=== PATIENT | male | born 1945 | race Caucasian/White ===

== ENCOUNTER 2017-10-03 17:17 | Inpatient (IN) | payer OTHER ==
[~2017-10-03] VITALS: Ht 165.1 cm; Wt 64.0 kg
--- NOTE | ~2017-10-03 | S ---
[facility] [place] [address] SURGICAL PATH RPT PROCEDURE Name: NAVI THEODORE Room #: 360-P ADM IN M.R.#: [id number] Admission: 10/03/17 Date of : 47 Discharge: Report #: [id number] Path Case #: [id number] PATHOLOGY REPORT COLLECTION DATE: 10/06/2017 RECEIVED DATE: 10/06/2017 SUBMITTING PHYS: Dr. Max Valdovinos OTHER PHYS: Dr. Gera Barton SPECIMEN(S) RECEIVED: A.RLL forceps * * * * * * * * * * * * FINAL DIAGNOSIS: "RLL forceps", bronchial biopsy: - Benign and reactive bronchial epithelium and underlying bronchial wall with patchy acute and chronic inflammation, ulceration and granulation tissue. - Vegetative material present. COMMENT: Please see also the cytology specimen ([id number]). Clinical and bronchoscopic correlation is recommended. The case is co-reviewed with Dr. Rosanne Salazar. (CLW:pit; 10/07/2017) PATHOLOGIST: Jeimy Leonard M.D. REPORT ELECTRONICALLY SIGNED BY: Jeimy Leonard M.D. DATE/TIME: 10/07/2017 16:54 * * * * * * * * * * * * GROSS PATHOLOGY: The specimen is received in formalin, labeled "Renée Weller Theodore and biopsy forcep RLL", are multiple henry-porter needle cores and fragments the aggregate measuring 1.0 x 0.6 x 0.1 cm, entirely submitted in A1. (SWS; 10/06/2017) CLINICAL HISTORY: None provided INITIAL CPT CODE(S): A; 40540 Professional services performed by [facility] at [facility] [address] , [place] [address] [facility] [address] [place] [address] SURGICAL PATH RPT PROCEDURE Name: NAVI THEODORE Room #: 360-P ADM IN M.R.#: [id number] Admission: 10/03/17 Date of : 47 Discharge: Report #: [id number] Path Case #: [id number] [facility] [address] [place] [address], [facility] [address] [place] [address]. [facility] [address] [place] [address] PHONE: [phone] DIRECTOR: Ron Rebolledo M.D. * * * END OF REPORT * * *
--- NOTE | ~2017-10-03 | CNG ---
[facility] [place] [address] CYTO-NONGYN REPORT PROCEDURE Name: NAVI THEODORE Room #: 360-P [facility] IN M.R.#: [id number] Admission: 10/03/17 Date of : 47 Discharge: 10/09/17 Report #: [id number] Path Case #: [id number] CYTOPATHOLOGY REPORT COLLECTION DATE: 10/09/2017 RECEIVED DATE: 10/09/2017 SUBMITTING PHYS: Dr. Max Valdovinos OTHER PHYS: Dr. Gera Wallace CLINICAL HISTORY: Resp. failure, PNA, COPD SPECIMEN(S) RECEIVED: A.Bronchoalveolar lavage, RLL * * * * * * * * * * * * FINAL DIAGNOSIS: A. Lung, RLL, Bronchoalveolar lavage: - No malignant cells identified. - Bronchial epithelial cells, alveolar macrophages, squamous cells and inflammation present. PATHOLOGIST: Rosanne Salazar M.D. REPORT ELECTRONICALLY SIGNED BY: Rosanne Salazar M.D. DATE/TIME: 10/12/2017 16:06 * * * * * * * * * * * * GROSS PATHOLOGY: A. Bronchoalveolar lavage, RLL: The specimen is submitted unfixed, labeled "Navi Theodore". Received by the Cytology Department is 14 mL of cloudy colorless fluid. One ThinPrep slide was prepared. (mm 10.09.2017) TREATING AND PUMPING SUPERVISOR(S): Mattie K. Shipe, CT(ASCP) INITIAL CPT CODE(S): A; 99813 Professional services performed by [facility] at [facility] [address], [place] [address] Technical services performed by [facility] at [address] [place] [address]., [address], [place] [address]. [facility] [address] [place] [address], [address] [place] [address] [facility] [address] [place] [address] CYTO-NONGYN REPORT PROCEDURE Name: NAVI THEODORE Room #: 360-P [facility] IN .R.#: [id number] Admission: 10/03/17 Date of : 47 Discharge: 10/09/17 Report #: [id number] Path Case #: [id number] PHONE: [phone] DIRECTOR: Ron Rebolledo M.D. * * * END OF REPORT * * *
--- NOTE | ~2017-10-03 | CNG ---
[facility] [place] [address] CYTO-NONGYN REPORT PROCEDURE Name: NAVI ISSA Room #: 360-P ADM IN M.R.#: [id number] Admission: 10/03/17 Date of : 47 Discharge: Report #: [id number] Path Case #: [id number] CYTOPATHOLOGY REPORT COLLECTION DATE: 10/06/2017 RECEIVED DATE: 10/07/2017 SUBMITTING PHYS: OTHER PHYS: CLINICAL HISTORY: Resp failure, PNA, COPD exacerbation: See also [id number]. SPECIMEN(S) RECEIVED: A.Bronchial wash B.Brushing, RLL * * * * * * * * * * * * FINAL DIAGNOSIS: A. Bronchial wash: - No malignant cells identified. Reactive bronchial epithelial cells and acute and chronic inflammatory cells present. B. Brushing, RLL: - No malignant cells identified. Normal and reactive bronchial epithelial cells, macrophages and acute and chronic inflammatory cells present in a background of blood, mucus and vegetative material. COMMENT: Please see also the bronchial wall biopsy ([id number]) showing benign bronchial epithelium with acute and chronic inflammation, ulceration and vegetative material. Clinical and bronchoscopic correlation is required. (CLW; 10/08/17) PATHOLOGIST: Jeimy Leonard M.D. REPORT ELECTRONICALLY SIGNED BY: Jeimy Leonard M.D. DATE/TIME: 10/08/2017 20:59 * * * * * * * * * * * * GROSS PATHOLOGY: A. Bronchial wash: The specimen is submitted unfixed, labeled "Issa, Navi Nithin". Received by the Cytology Department is 13 mL of cloudy red fluid. One ThinPrep slide was prepared. RAJIV Justice: The specimen is labeled "Navi Issa" and consists of a brush tip in fixative and four fixed slides. One ThinPrep slide was prepared. (lg 10.07.2017) REGIONAL RETAIL SALES MANAGER(S): RAS Pina(ASCP)[address] [address] CYTO-NONGYN REPORT PROCEDURE Name: NVAI ISSA Room #: 360-P [facility] IN M.R.#: [id number] Admission: 10/03/17 Date of : 47 Discharge: Report #: [id number] Path Case #: [id number] INITIAL CPT CODE(S): A; 29497 B; 22165 Professional services performed by [facility] at [address], [place] [address] [facility] at [address] [place] [address], [address], [place] [address]. [address], [facility] [address] [place] [address] PHONE: [phone] DIRECTOR: Ron Rebolledo M.D. * * * END OF REPORT * * *
--- NOTE | ~2017-10-03 | CNG ---
[facility] [place] [address] CYTO-NONGYN REPORT PROCEDURE Name: ISSANAVI Diana Room #: 360-P ADM IN M.R.#: [id number] Admission: 10/03/17 Date of : 47 Discharge: Report #: [id number] Path Case #: [id number] CYTOPATHOLOGY REPORT COLLECTION DATE: 10/04/2017 RECEIVED DATE: 10/05/2017 SUBMITTING PHYS: Dr. Gera Barton OTHER PHYS: Dr. Max Wallace CLINICAL HISTORY: Respiratory failure, PNA, COPD EXAC SPECIMEN(S) RECEIVED: A.Pleural fluid * * * * * * * * * * * * FINAL DIAGNOSIS: A. Pleural fluid: - No malignant epithelial cells identified. - Highly reactive mesothelial cells identified in a background of marked acute inflammation. PATHOLOGIST: Jeimy Leonard M.D. REPORT ELECTRONICALLY SIGNED BY: Jeimy Leonard M.D. DATE/TIME: 10/06/2017 11:47 * * * * * * * * * * * * GROSS PATHOLOGY: A. Pleural fluid: The specimen is submitted unfixed, labeled "Navi Issa". Received by the Cytology Department is 20 mL of cloudy yellow fluid. One ThinPrep slide and a formalin fixed cell block were prepared. (10.05.2017) HISTOTECHNOLOGIST(S): RAS Marroquin([facility]) INITIAL CPT CODE(S): A; 23637, 59682 Professional services performed by [facility] at [facility] [address], [place] [address] Technical services performed by [facility] at [address] [place] [address]., [address], [place] [address]. [facility] [address] [place] [address], [address] [facility] [address] [place] [address] CYTO-NONGYN REPORT PROCEDURE Name: NAVI ISSA Room #: 360-P ADM IN M.R.#: [id number] Admission: 10/03/17 Date of : 47 Discharge: Report #: [id number] Path Case #: [id number] [place] [address] PHONE: [phone] DIRECTOR: Ron Rebolledo M.D. * * * END OF REPORT * * *
--- NOTE | ~2017-10-03 | HC ---
[facility] [place] [address] CONSULTATION Name: NAVI THEODORE Room #: 360-P ADM IN M.R.#: [id number] Admission: 10/03/17 Attend Phys: Max Valdovinos MD Discharge: Date of : 47 Report #: [id number] THIS REPORT FOR: //name// CC: Max Wallace DO DATE OF SERVICE: 10/04/2017 REFERRING PROVIDER: Dr. Valdovinos. REASON FOR CONSULTATION: Shortness of breath, pleural effusion. HISTORY OF PRESENT ILLNESS: Our group was asked to see the patient in consultation while hospitalized at [facility]. A pleasant 72-year-old male with a past pulmonary history of tobacco use, quitting roughly a few years ago. He had some increasing shortness of breath over the last several days, presented to [facility], was found to have what appeared to be an infiltrate and effusion, was told he had mucus plugging. Did not respond to antibiotic therapy and airway clearance measures while at [facility], subsequently discharged; however, re-presented to our hospital yesterday for similar complaints, was found to have a right pleural effusion. CT scan of the chest was performed due to chest pain and dyspnea on that side and found to have a significant pleural effusion, has undergone a thoracentesis this afternoon. Some fever and chills. Cough has been nonproductive. No hemoptysis. ALLERGIES: PENICILLIN. PAST MEDICAL HISTORY: 1. COPD. 2. Hypertension. 3. Hyperlipidemia. 4. Tonsillectomy. SOCIAL HISTORY: Ex-smoker with a 50-pack year history of tobacco use. No alcohol consumption. FAMILY HISTORY: Significant for some pulmonary disease in his father. He could not elaborate on. OUTPATIENT MEDICATIONS: Recently included doxycycline, albuterol, atorvastatin, Norvasc, and budesonide. REVIEW OF SYSTEMS: CONSTITUTIONAL: Some fever up to 100.5. No chills. [facility] [address] [place] [address] CONSULTATION Name: NAVI THEODORE Room #: [facility] IN ..#: [id number] Admission: 10/03/17 Attend Phys: Max Valdovinos MD Discharge: Date of : 47 Report #: [id number] ENT: No upper respiratory congestion or rhinorrhea. CARDIOVASCULAR: Chest pain in the right lower chest. No palpitations. GASTROINTESTINAL: No nausea, vomiting, diarrhea, constipation or abdominal pain. GENITOURINARY: No dysuria, no frequency or hematuria. INTEGUMENT: Denies any rash. MUSCULOSKELETAL: No joint pains or swelling and no lower extremity edema. PHYSICAL EXAMINATION: VITAL SIGNS: Afebrile, pulse 80s, respiratory rate 18, blood pressure 121/72. GENERAL: This is a pleasant elderly male, does not appear in any distress. HEENT: Clear oropharynx. No thrush. NECK: Supple, no lymphadenopathy. LUNGS: Diminished on the right with some pleural friction rub appreciated. CARDIOVASCULAR: Heart regular. No murmurs noted. ABDOMEN: Soft, nontender, no masses. EXTREMITIES: Without significant edema. IMAGING AND LABORATORY DATA: CT scan as described in HPI. Significant emphysema noted as well as possible right lower lobe endobronchial obstruction with significant pleural effusion. White blood cell count 11,000; hemoglobin 12; hematocrit 35, platelet count 674. Sodium 138, potassium 3.8, chloride 103, bicarbonate 24, BUN 14, creatinine 0.6, glucose 149. Cultures are pending. IMPRESSION: 1. Pulmonary infiltrate and right pleural effusion of unclear etiology. Await pleural fluid results. Consider fiberoptic bronchoscopy if significant atelectasis persists. 2. Chest pain secondary to #1 above. 3. History of tobacco use. 4. Underlying chronic obstructive pulmonary disease and emphysema. The patient states he is typically well controlled on Symbicort and Spiriva daily with rare need for p.r.n. albuterol. SUGGESTIONS: As outlined above. <ELECTRONICALLY SIGNED> By: Gera Barton MD 10/07/17 1818 01 0227 Gera Barton MD /nt
--- NOTE | ~2017-10-03 | P ---
[facility] [place] [address] PROCEDURE REPORT Name: NAVI THEODORE Room #: 360-P [facility] IN M.R.#: [id number] Admission: 10/03/17 Attend Phys: Max Valdovinos MD Discharge: 10/09/17 Date of : 47 Report #: [id number] THIS REPORT FOR: //name// CC: Max Wallace DATE OF SERVICE: 10/09/2017 PROCEDURE: Fiberoptic bronchoscopy with bronchioalveolar lavage of the right lower lobe. INDICATION: Foreign body in the right lower lobe with recent bronchoscopy showing a vegetative material and ongoing mucous plugs and atelectasis, ASA classification class 3. PROCEDURE NOTATION: After discussing risks, benefits of planned procedure with the patient, he desired to proceed. After obtaining informed consent, he was brought to label pinker 3 where he was placed on continuous cardiopulmonary monitoring and supplemental oxygen, then given 4% lidocaine nebulized to anesthetize the upper respiratory tract. Once accomplished, he received conscious sedation. A total of 6 mg of Versed and 25 mcg of fentanyl were titrated during the procedure to provide adequate sedation. Once accomplished, bronchoscope was passed through an oral bite block until the vocal cords were visualized. Lidocaine 1% was instilled in the vocal cords for topical anesthesia. Bronchoscope was then passed in the trachea, where 1% lidocaine was instilled in the tracheobronchial tree bilaterally for topical anesthesia. Once complete, airways were surveyed. FINDINGS: The left-sided airways were not evaluated as they were evaluated 3 days prior. Please see prior bronchoscopy dictation for notations. Right-sided findings did show some ongoing edema to the right lower lobe airways. There were some thick mucus plugging that was purged and aspirated with several 20 mL aliquots of saline. Several mucus plugs were captured in the bronchoscopy trap. There was no significant other foreign material noted. All areas were patent at the end of the lavage. The upper airway did show candidiasis around the epiglottis and other soft tissue structures in this area. IMPRESSION: 1. Pneumonia with atelectasis, nothing for foreign material. 2. Thrush and oropharyngeal candidiasis. SUGGESTIONS: 1. Nystatin swish and swallow four times daily. 2. Continue with current airway clearance measures and antibiotics. 3. Okay to discharge is stable on supplemental oxygen, aerosol treatments, [facility] [address] [place] [address] PROCEDURE REPORT Name: NAVI THEODORE Room #: 360-[facility] IN M.R.#: [id number] Admission: 10/03/17 Attend Phys: Max Valdovinos MD Discharge: 10/09/17 Date of : 47 Report #: [id number] clindamycin for an additional two weeks and follow with us in 1 week with chest radiograph in our office. <ELECTRONICALLY SIGNED> By: Gera Barton MD 10/26/17 1535 1001 2332 Gera Barton MD /sarah
--- NOTE | ~2017-10-03 | H ---
[facility] [place] [address] HISTORY AND PHYSICAL Name: NAVI THEODORE Room #: 360-P ADM IN M.R.#: [id number] Admission: 10/03/17 Attend Phys: Max Valdovinos MD Discharge: Date of : 47 Report #: [id number] THIS REPORT FOR: //name// CC: Duncan Rios DATE OF SERVICE: 10/03/2017 REASON FOR THE PRESENTATION: Shortness of breath of few days' duration. HISTORY OF PRESENT ILLNESS: A 72-year-old with advanced COPD. This seems to be all environmental related as he is exposed to so many environmental agents with his job. However, he does not follow with the solar sales representative. He is maintained on multiple inhalers. He visited with [facility] few days ago and was admitted for his shortness of breath and was told that he had some sort of pneumonia. He was discharged on doxycycline. He tested negative for flu. During his hospital stay of 3 days in [facility], he was told that he had a mucus plug on his right lung; however, they are not able to do anything at that facility. The patient was discharged home on oxygen 4 liters nasal cannula at rest and 6 liters while exertion. He continued to have significant shortness of breath even at rest. This was associated with some dry cough. No fever or chills. No hemoptysis. Despite aggressive inhaler therapy, his symptoms continue to worsen and he presented for further evaluation and management after he called his primary care physician who advised him to present to the Emergency Room. He was not prescribed any steroids. No prior similar episodes. No contact with sick people. He is known to have hypertension and hyperlipidemia. He does not have any other chronic medical problems. No travel abroad. No exposure to sick people. He quit smoking 4 years ago after he smoked for about 50 years about a pack a day. PAST MEDICAL HISTORY: 1. COPD. 2. Hypertension. 3. Hyperlipidemia. 4. Status post tonsillectomy. SOCIAL HISTORY: No drug or alcohol abuse, but he had a 50-year smoking history. As I have stated, he has his own business dealing with concrete, sands. FAMILY HISTORY: His dad has lung issues, but he is not able to elaborate more on the lung issues. MEDICATIONS: 1. Atorvastatin. 2. Albuterol. 3. Doxycycline. [address] [address] HISTORY AND PHYSICAL Name: NAVI THEODORE Room #: 360-P [facility] IN ..#: [id number] Admission: 10/03/17 Attend Phys: Max Valdovinos MD Discharge: Date of : 47 Report #: [id number] 4. Norvasc. 5. Budesonide. REVIEW OF SYSTEMS: GENERAL: No fever or chills. CARDIOVASCULAR: No chest pain or palpitation. PULMONARY: As per the history of present illness. GASTROINTESTINAL: No nausea or vomiting. GENITOURINARY: No frequency, no urgency. MUSCULOSKELETAL: No back pain, no muscle pain. SKIN: No rash or ulcerations. NEUROLOGICAL: No syncope, no headache, no dizziness. HEMATOLOGICAL AND LYMPHATIC: No easy bruisability. No epistaxis. PHYSICAL EXAMINATION: GENERAL: The patient is alert, oriented; however, he seems to use his accessory muscle, especially in the neck area. VITAL SIGNS: Pulse ox is 96, respiratory rate is 25, blood pressure is 130/80, temperature 36.7. HEAD AND NECK: Apparent usage of his accessory muscles. No thyroid felt. PULMONARY: Very limited air entry bilaterally with very limited chest expansion bilaterally. CARDIOVASCULAR: Regular S1 and S2 with no gallops or rubs detected. ABDOMEN: Soft, nontender with no hepatosplenomegaly. LOWER EXTREMITIES: Free of edema with no clubbing or cyanosis. NEUROLOGICAL: He is alert, oriented with grossly intact. Strength in the upper extremities and lower extremities with no cranial nerve deficits. SKIN: No rash or ulcerations. LABORATORY DATA: All laboratory values are pending. IMAGING: No chest x-ray is yet available. ASSESSMENT, IMPRESSION: 1. Chronic obstructive pulmonary disease with chronic respiratory failure. 2. Acute exacerbation of chronic obstructive pulmonary disease with what seems to be acute respiratory failure; however, labs and blood gases are pending. 3. Recent treatment for pneumonia. 4. Hypertension. 5. Hyperlipidemia. PLAN: 1. Obtain stat blood gas. 2. Stat chest x-ray. 3. Chemistry and blood counts. 4. Blood cultures. [address] [address] HISTORY AND PHYSICAL Name: NAVI THEODORE Room #: 360-P [facility] IN M.R.#: [id number] Admission: 10/03/17 Attend Phys: Max Valdovinos MD Discharge: Date of : 47 Report #: [id number] 5. Test for flu. 6. Initiate appropriate antibiotic therapy for healthcare-associated pneumonia. 7. Initiate steroids. 8. Inhalers therapy. 9. Pulmonary consultation. 10. Based on his chest x-ray and blood gas, I will decide whether to admit the patient to critical tertiary versus ICU admissions. <ELECTRONICALLY SIGNED> By: Max Valdovinos MD 10/04/17 1505 1804 1848 Max Valdovinos MD /nt
--- NOTE | ~2017-10-03 | EKG ---
[address] [address] ELECTROCARDIOGRAM REPORT Name: EWELINANAVIGarrett BLELO Room #: [facility].#: [id number] Admission: Attend Phys: Discharge: Date of : 47 Report #: [id number] THIS REPORT FOR: //name// [facility] ED Test Date: 2017-10-03 Test Time: 17:51:18 Pat Name: NAVI THEODORE Department: Room: Gender: Wood Tile Installation Helper: CODY : 1945 Requested By: Chago Rios Order Number: [id number] MD: Erick Spears Measurements Intervals Barnum Rate: 115 P: 55 MS: 130 QRS: -14 QRSD: 91 T: 18 QT: 327 QTc: 453 Interpretive Statements Sinus tachycardia Ventricular premature complex No previous ECG available for comparison Electronically Signed On 10-03-2017 18:08:24 EXPORT AGENT by Erick Spears [email or web address] <ELECTRONICALLY SIGNED> By: Erick Spears MD 10/03/17 1808 1751 1751 Erick Spears MD /EPI
--- NOTE | ~2017-10-03 | P ---
[facility] [place] [address] PROCEDURE REPORT Name: NAVI THEODORE Room #: 360-P [facility] IN M.R.#: [id number] Admission: 10/03/17 Attend Phys: Max Valdovinos MD Discharge: Date of : 47 Report #: [id number] THIS REPORT FOR: //name// CC: Max Wallace DATE OF SERVICE: 10/06/2017 PROCEDURE: Fiberoptic bronchoscopy with endobronchial biopsies of the lateral segment of the right lower lobe as well as bronchial washings and cytologic brushings. INDICATION: A mucous plugging and/or mass with abnormal-appearing airways in the right lower lobe. ASA classification class 3. PROCEDURE NOTATION: After discussing risks and benefits of the procedure with the patient, he desired to proceed. After obtaining informed consent, he was brought to lab animal technician 3, was placed on continuous cardiopulmonary monitoring and supplemental oxygen, then given 4% lidocaine nebulized to anesthetize the upper respiratory tract. Once accomplished, she received conscious sedation, a total of 7 mg of Versed and 50 mcg of fentanyl were titrated during the procedure to provide adequate sedation. Once accomplished, bronchoscope was passed through an oral bite block until the vocal cords were visualized. Vocal cords moved appropriately both before and after the procedure. 1% lidocaine was instilled in the vocal cords to provide topical anesthesia. Bronchoscope was then passed in the trachea, 1% lidocaine was instilled in the tracheobronchial tree bilaterally for topical anesthesia. Once complete, airways were surveyed. FINDINGS: Mainstem, lobar, segmental and subsegmental bronchi were explored. There was a minor anatomic variation of the right upper lobe with 4 instead of 3 segmental airways. The right lower lobe in the lateral segment had a white exudative-appearing material. Some of this was able to be purged and aspirated and some of it was not able to be purged from the airway. This had the suggestion of either a very dense mucus plugs such as from Aspergillus or related to a necrotic tumor. The airway was distorted with some minor growths in it. Several cytologic brushings were obtained in this area. Several forceps biopsies were also obtained in this area. Bronchial washings were sent for cytologic and microbiologic tests. The patient tolerated well. No noted complications. He required high flow oxygen due to underlying pneumonia and pleural effusion as well as to further procedure. The patient is doing well post-procedure. <ELECTRONICALLY SIGNED> By: Gera Barton MD 10/07/17 1818 1425 05 Gera Barton MD /nt
[2017-10-03 17:35] VITALS: BP 141/81
[2017-10-03 18:00] LABS: HEMATOCRIT 38.2 % (42.0-52.0); HEMOGLOBIN 12.8 gm/dL (14.0-18.0); MCH 33.1 pg (26.0-34.0); MCHC 33.6 g/dL (28.0-37.0); MCV 98.4 fL (80.0-100.0); RBC 3.88 mil/uL (4.50-6.00); RDW 12.9 % (10.5-14.5); WBC 16.1 thou/uL (4.0-11.0)
[2017-10-03 18:02] LABS: BE(vivo) -0.2 mmol/L (-2 to +3); HCO3 22.6 mmol/L (22.0-26.0); PCO2 31.5 mmHg (35.0-45.0); PO2 85.9 mmHg (80.0-100.0); pH 7.473 (7.360-7.450); sO2 97.1 % (92.0-98.0)
[2017-10-03 18:08] LABS: ANION GAP 10 mmol/L (7-16); BUN 15 mg/dL (7-18); CALCIUM 9.1 mg/dL (8.5-10.1); CHLORIDE 101 mmol/L (98-107); CO2 26 mmol/L (21-32); CREATININE 0.7 mg/dL (0.7-1.3); GLUCOSE 109 mg/dL (74-106); POTASSIUM 3.7 mmol/L (3.5-5.1); SODIUM 137 mmol/L (136-145)
[2017-10-03 18:17] LABS: TROPONIN-I < 0.04 ng/mL (<0.06)
[2017-10-03] MEDS ORDERED: VENTOLIN HFA 1818 GM INH (18:36)
[2017-10-03] MEDS ORDERED: NORVASC10 MG PO (18:36)
[2017-10-03] MEDS ORDERED: TESSALON PERLE100 MG PO (18:36)
[2017-10-03] MEDS ORDERED: LIPITOR10 MG PO (18:36)
[2017-10-03] MEDS ORDERED: SYMBICORT80 MCG/4.1 INH (18:37)
[2017-10-03] MEDS ORDERED: DOXYCYCLINE 10100 MG PO (18:38)
[2017-10-03] MEDS ORDERED: CENTRUM SILVER1 EAC2 PO (18:38)
[2017-10-03] MEDS ORDERED: BUSPIRONE HCL10 MG PO (18:38)
[2017-10-03] MEDS ORDERED: SPIRIVA INH (18:38)
[2017-10-03 20:00] VITALS: BP 134/82
[2017-10-04 03:12] VITALS: BP 121/74
[2017-10-04 03:51] LABS: HEMATOCRIT 35.2 % (42.0-52.0); HEMOGLOBIN 12.1 gm/dL (14.0-18.0); MCH 33.5 pg (26.0-34.0); MCHC 34.5 g/dL (28.0-37.0); MCV 97.2 fL (80.0-100.0); RBC 3.62 mil/uL (4.50-6.00); RDW 12.7 % (10.5-14.5); WBC 10.6 thou/uL (4.0-11.0)
[2017-10-04 04:22] LABS: CALCIUM 8.5 mg/dL (8.5-10.1); CREATININE 0.6 mg/dL (0.7-1.3); POTASSIUM 3.8 mmol/L (3.5-5.1); TOTAL BILIRUBIN 0.3 mg/dL (<0.1-1.0); TOTAL PROTEIN 6.6 g/dL (6.4-8.2)
[2017-10-04 12:56] VITALS: BP 121/72
[2017-10-04 15:09] VITALS: BP 117/70
[2017-10-04 17:13] LABS: CLARITY CLOUDY; COLOR YELLOW; SOURCE CHEST; TOTAL VOLUME 60 mL
[2017-10-04 17:14] LABS: BF NUCLEATED CELLS 4042; BF RBC 5219
[2017-10-04 18:10] LABS: BF NEUTROPHILS 78
[2017-10-04 18:11] LABS: BF MACROPHAGE 11
[2017-10-04 19:45] VITALS: BP 125/79
[2017-10-05 04:15] VITALS: BP 129/84
[2017-10-05 06:38] LABS: HEMATOCRIT 31.7 % (42.0-52.0); HEMOGLOBIN 10.7 gm/dL (14.0-18.0); MCH 32.9 pg (26.0-34.0); MCHC 33.7 g/dL (28.0-37.0); MCV 97.7 fL (80.0-100.0); RBC 3.24 mil/uL (4.50-6.00); RDW 12.8 % (10.5-14.5)
[2017-10-05 06:41] LABS: WBC 26.7 thou/uL (4.0-11.0)
[2017-10-05 06:58] LABS: ALBUMIN 1.8 g/dL (3.4-5.0); CALCIUM 8.3 mg/dL (8.5-10.1); CREATININE 0.6 mg/dL (0.7-1.3); TOTAL BILIRUBIN 0.2 mg/dL (<0.1-1.0); TOTAL PROTEIN 5.8 g/dL (6.4-8.2)
[2017-10-05 08:11] VITALS: BP 127/74
[2017-10-05 09:21] LABS: SOURCE CHEST
[2017-10-05 12:02] VITALS: BP 116/70
[2017-10-05 17:11] VITALS: BP 117/82
[2017-10-05 19:26] VITALS: BP 122/74
[2017-10-06 03:58] VITALS: BP 131/77
[2017-10-06 04:13] LABS: ABSOLUTE NEUTROPHILS 17.9 thou/uL (1.4-8.2); BASOPHILS 0.4 % (0.0-2.0); HEMATOCRIT 31.7 % (42.0-52.0); HEMOGLOBIN 10.7 gm/dL (14.0-18.0); LYMPHOCYTES 6.8 % (24.0-44.0); MCH 33.1 pg (26.0-34.0); MCHC 33.8 g/dL (28.0-37.0); MONOCYTES 3.3 % (1.0-8.0); PLATELET COUNT 732 thou/uL (150-400); POLYS 89.5 % (36.0-66.0); RBC 3.23 mil/uL (4.50-6.00)
[2017-10-06 04:25] LABS: CALCIUM 8.2 mg/dL (8.5-10.1); CREATININE 0.6 mg/dL (0.7-1.3); POTASSIUM 3.6 mmol/L (3.5-5.1)
[2017-10-06 08:08] VITALS: BP 135/75
[2017-10-06 16:08] LABS: BODY FLUID ALBUMIN 2.3 g/dL (()); BODY FLUID AMYLASE 44 U/L (()); BODY FLUID GLUCOSE 132 mg/dL (()); BODY FLUID LDH 588 IU/L (()); BODY FLUID PROTEIN 4.2 g/dL (())
[2017-10-06 17:27] VITALS: BP 126/67
[2017-10-06 19:28] VITALS: BP 135/71
[2017-10-07 04:03] VITALS: BP 133/77
[2017-10-07 08:51] VITALS: BP 133/62
[2017-10-07 11:43] VITALS: BP 136/83
[2017-10-07 19:55] VITALS: BP 165/90
[2017-10-08 04:00] VITALS: BP 148/92
[2017-10-08 08:47] VITALS: BP 137/66
[2017-10-08 16:30] VITALS: BP 147/65
[2017-10-08 19:40] VITALS: BP 134/79
[2017-10-09 03:51] VITALS: BP 136/79
[2017-10-09 07:18] VITALS: BP 150/83
[2017-10-09] MEDS ORDERED: CLEOCIN HCL150 MG PO (08:40)
[2017-10-09] MEDS ORDERED: PROTONIX40 M1 PO (08:40)
[2017-10-09] MEDS ORDERED: NYSTATIN100000 UNI SW&SWALLOW (11:46)
[2017-10-09] MEDS ORDERED: DUONEB 2.5-0.5 M3 ML INH (11:46)
[2017-10-09 11:57] VITALS: BP 167/99
[2017-10-09 12:14] VITALS: BP 169/142
[2017-10-09 14:18] VITALS: BP 169/142
[2017-10-09] MEDS ORDERED: NORVASC10 MG PO (14:28)
[2017-10-09 14:41] VITALS: BP 169/142
== END 2017-10-09 15:31 | disposition home or self-care (01) | DRG 853 ==
LOC: ER 17:17 → 3W 19:42 → ENTRNSPT 10-09 15:23 → EDTRNSPTSTS 10-09 15:26 → 3W 10-09 15:31
PROVIDERS: Emergency Medicine; Hospitalist; Internal Medicine Pulmonary Disease
PROC: 0W993ZZ Drainage of Right Pleural Cavity, Percutaneous Approach (ICD-10-PCS; 2017-10-04)
PROC: 0BD68ZX Extraction of Right Lower Lobe Bronchus, Via Natural or Artificial Opening Endoscopic, Diagnostic (ICD-10-PCS; principal; 2017-10-06)
PROC: 0B9F8ZX Drainage of Right Lower Lung Lobe, Via Natural or Artificial Opening Endoscopic, Diagnostic (ICD-10-PCS; 2017-10-09)
DX: A41.9 Sepsis, unspecified organism (principal); J18.9 Pneumonia, unspecified organism; J96.01 Acute respiratory failure with hypoxia; J44.1 Chronic obstructive pulmonary disease with (acute) exacerbation; J44.0 Chronic obstructive pulmonary disease with (acute) lower respiratory infection; J98.11 Atelectasis; J90 Pleural effusion, not elsewhere classified; B37.9 Candidiasis, unspecified; E78.5 Hyperlipidemia, unspecified; I10 Essential (primary) hypertension; Z79.899 Other long term (current) drug therapy; Z88.0 Allergy status to penicillin; Z90.49 Acquired absence of other specified parts of digestive tract; Z87.891 Personal history of nicotine dependence
CPT/HCPCS: 10879

== ENCOUNTER → 2017-10-15 | Outpatient (CLI) | payer OTHER ==
[~2017-10-15] MED LIST: BUSPIRONE HCL10 MG PO; CENTRUM SILVER1 EAC2 PO; CLEOCIN HCL150 MG PO; DOXYCYCLINE 10100 MG PO; DUONEB 2.5-0.5 M3 ML INH; LEVAQUIN 500 M500 M1 PO; LIPITOR10 MG PO; NORVASC10 MG PO; NYSTATIN100000 UNI SW&SWALLOW; PROTONIX40 M1 PO; SPIRIVA INH; SYMBICORT80 MCG/4.1 INH; TESSALON PERLE100 MG PO; VENTOLIN HFA 1818 GM INH
== END ==
LOC: RAD 08:18
DX: J69.0 Pneumonitis due to inhalation of food and vomit (principal); R91.8 Other nonspecific abnormal finding of lung field; J90 Pleural effusion, not elsewhere classified; J43.1 Panlobular emphysema

== ENCOUNTER 2017-10-29 16:04 | Inpatient (IN) | payer OTHER ==
[~2017-10-29] VITALS: Ht 165.1 cm; Wt 65.8 kg
--- NOTE | ~2017-10-29 | D ---
[facility] [place] [address] DISCHARGE SUMMARY Name: NAVI THEODORE Room #: 364-P [facility] IN M.R.#: [id number] Admission: 10/29/17 Attend Phys: Ary Mckeon MD Discharge: 11/02/17 Date of : 47 Report #: [id number] THIS REPORT FOR: //name// CC: Duncan Mckeon DATE OF SERVICE: 11/02/2017 HISTORY OF PRESENT ILLNESS: The patient is a 72-year-old man who presented to the hospital with fever and myalgias. The patient was hospitalized here last month for aspiration pneumonia. Please refer to admission H and P for details. In brief, the patient had chest x-ray that showed bilateral infiltrates again. At this time, the patient did not have shortness of breath, but had fever and myalgias. HOSPITALIZATION COURSE: The patient was hospitalized for fever and myalgias, which was most likely due to viral illness. The patient was treated empirically with Tamiflu. For bilateral infiltrates, that was worsening, the patient was treated with antibiotics. [employer] was consulted. At this time, the patient's recurrent infiltrate was possible due to pneumonia. The patient was treated with vancomycin and Zosyn, then he changed to Levaquin. He did well. Clinically, his condition much improved. Fever has resolved. Currently, the patient's condition is acceptable and he is asymptomatic. He will be discharged home on outpatient followup. DISCHARGE DIAGNOSES: 1. Febrile illness and myalgias, likely due to viral etiology, resolved. 2. Recurrent pulmonary infiltrates, acute on chronic. Possible pneumonia. The patient will continue Levaquin for 1 more week. SECONDARY DIAGNOSES: Include recent pneumonia involving right lower lobe; recent pleural effusion, status post thoracentesis last month, 1.3 liters removed; severe chronic obstructive pulmonary disease; hypertension and dyslipidemia. DISCHARGE MEDICATIONS: The patient will be treated with Levaquin for 1 more week. Rest of the home medications will be continued unchanged. Please refer to the medication reconciliation list. DISPOSITION: The patient is discharged home. FOLLOWUP PLAN: [address] [address] DISCHARGE SUMMARY Name: NAVI THEODORE EUGENIA Room #: 364-P [facility] IN .R.#: [id number] Admission: 10/29/17 Attend Phys: Ary Mckeon MD Discharge: 11/02/17 Date of : 47 Report #: [id number] 1. Follow up with the primary care physician in 1-2 weeks. 2. Follow up with the coremaker experimental as advised. <ELECTRONICALLY SIGNED> By: Ary Mckeon MD 11/02/17 1906 1034 1049 Ary Mckeon MD /nt
--- NOTE | ~2017-10-29 | EKG ---
[address] [address] ELECTROCARDIOGRAM REPORT Name: NAVI THEODORE Room #: 364-P ADM IN M.R.#: [id number] Admission: 10/29/17 Attend Phys: Ary Mckeon MD Discharge: Date of : 47 Report #: [id number] THIS REPORT FOR: //name// [facility] [place] [facility] ED Test Date: 2017-10-29 Test Time: 16:35:40 Pat Name: NAVI THEODORE Department: Room: 364 Gender: M Business Professor: PAULY : 1945 Requested By: Jasvir Lopez Order Number: [id number] MD: Zaid Jackson Measurements Intervals Jackson Rate: 114 P: 55 VA: 141 QRS: 17 QRSD: 91 T: 34 QT: 335 QTc: 462 Interpretive Statements Sinus tachycardia Multiple ventricular premature complexes Compared to ECG 10/03/2017 17:51:18 No significant changes Electronically Signed On 10-30-2017 7:47:43 GHOST WRITER by Zaid Jackson [email or web address] <ELECTRONICALLY SIGNED> By: Zaid Jackson MD, [facility] 10/30/17 0747 1635 1635 Zaid Jackson MD, [facility] /EPI
--- NOTE | ~2017-10-29 | H ---
[facility] [place] [address] HISTORY AND PHYSICAL Name: NAVI THEODORE Room #: 364-P [facility] IN M.R.#: [id number] Admission: 10/29/17 Attend Phys: Ary Mckeon MD Discharge: 11/02/17 Date of : 47 Report #: [id number] THIS REPORT FOR: //name// CC: Duncan Mckeon DATE OF SERVICE: 10/29/2017 CHIEF COMPLAINT: Fever and myalgias. HISTORY OF PRESENT ILLNESS: The patient is a 72-year-old man who was hospitalized here from October 03 through October 09 for aspiration pneumonia. The patient also had right-sided pleural effusion, and had thoracentesis, with 1.3 liters fluid removed. The patient was discharged home on clindamycin. The patient states that he was doing well until a couple days ago when he started having fevers and chills. Yesterday, his fever was 101.7. He called his doctor, who suggested the patient to come to the Emergency Room and have x-ray taken. Chest x-ray showed stable infiltrates, right basal infiltrate larger than left. The patient denies worsening shortness of breath, cough or other respiratory symptoms. He states that he had another episode of fever this morning with myalgias. His white count is 15,000, which is better than the previous hospitalization. PAST MEDICAL HISTORY: 1. Recent pneumonia involving right lower lobe, suspected aspiration. 2. Recent right pleural effusion, status post thoracentesis, with 1.3 liters removed. 3. Severe COPD. 4. Hypertension. 5. Dyslipidemia. HOME MEDICATIONS: Reviewed and documented in the patient's chart. FAMILY HISTORY: Reviewed and not pertinent to the patient's current condition. SOCIAL HISTORY: The patient quit smoking cigarettes about 4 years ago. He states that he drinks alcohol occasionally. REVIEW OF SYSTEMS: As above in HPI section, all others negative. PHYSICAL EXAMINATION: GENERAL: The patient is an elderly man who is in no apparent distress. He is [facility] [address] [place] [address] HISTORY AND PHYSICAL Name: NAVI THEODORE Room #: 364-P [facility] IN M.R.#: [id number] Admission: 10/29/17 Attend Phys: Ary Mckeon MD Discharge: 11/02/17 Date of : 47 Report #: [id number] alert and oriented x 3. VITAL SIGNS: Blood pressure is 134/76, heart rate is 104 from 120, respirations 16, temperature is 98.7. HEENT: Pupils are equal. Eye movements are intact. Sclerae are anicteric. NECK: Supple. Thyromegaly is not palpated. RESPIRATORY: The patient has diminished respiratory sounds, more at the bases, on the right. No wheezes or crackles. CARDIOVASCULAR: The patient has regular rhythm and rate. He has no murmurs, gallops or rubs. GASTROINTESTINAL: Abdomen is soft, nondistended and nontender. Bowel sounds are present. The patient has no hepatomegaly or splenomegaly. NEUROLOGIC: The patient is alert and oriented x 3. His examination is nonfocal. EXTREMITIES: The patient has no edema, cyanosis or clubbing. SKIN: Reveals no skin lesions. Skin is dry and warm. LABORATORY DATA: On CBC, white count is 15.4, hemoglobin 12.6, hematocrit 36.5, platelets 599. Metabolic profile is essentially normal, with normal creatinine. Chest x-ray shows bilateral pulmonary infiltrates, more at the right base. ASSESSMENT AND PLAN: 1. Fever and myalgias, last 2 days' duration. Influenza? Influenza test is negative, but false negative cannot be ruled out. The patient will be treated with Tamiflu empirically. 2. Bilateral pulmonary infiltrates. No increased shortness of breath, no cough. Persistent infiltrates? worsening pneumonia?. The patient will be treated with broad-spectrum antibiotics for now. Pulmonary consultation is requested. Input is very much appreciated. 3. Chronic obstructive pulmonary disease, oxygen dependent at home. Continue outpatient medications unchanged. 4. Hypertension, acceptable control. Continue home medications. 5. Deep venous thrombosis prophylaxis. We will use subcutaneous Lovenox. <ELECTRONICALLY SIGNED> By: Ary Mckeon MD 11/02/171905 17 35 Ary Mckeon MD /nt
--- NOTE | ~2017-10-29 | HC ---
[facility] [place] [address] CONSULTATION Name: NAVI THEODORE Room #: 364-P ADM IN M.R.#: [id number] Admission: 10/29/17 Attend Phys: Ary Mckeon MD Discharge: Date of : 47 Report #: [id number] THIS REPORT FOR: //name// CC: Duncan Mckeon INFECTIOUS DISEASE CONSULTATION REASON FOR CONSULTATION: I was asked to evaluate concerning recurrent pneumonia. HISTORY OF PRESENT ILLNESS: The patient was a 72-year-old who presented to the emergency room with fever over 101 degrees, myalgias, arthralgias and shortness of breath. Diagnosed with right lower lobe pneumonia and placed on Med/Surg floor with oxygen at 2 liters per nasal cannula. Predating this, he was hospitalized on October 03 with right lower lobe pneumonia, postobstructive. Apparently, he had aspirated a peanut cluster several weeks before this. He thought he had coughed the material up, but then developed fever and shortness of breath. Underwent bronchoscopy with removal of the particulate matter and opening the obstruction. Cultures were negative. Second bronchoscopy done during that hospital stay noted improvement in his mucus in the region. Treated with IV antibiotic therapy and dismissed on clindamycin. He finished this last week and 2 days ago, started noticing low-grade fever associated with myalgias, arthralgias and shortness of breath. No nausea, vomiting or diarrhea. There actually had been some constipation previously, one episode of dysuria, but no hematuria. No back or flank pain. He has had a nonproductive cough. No nausea, vomiting or abdominal pain. No HIV risk factors, past smoker. Immunizations up-to-date for pneumonia and influenza. His has been without respiratory issues. Has a pet dog. His pet cat just approximately 2 weeks ago. No respiratory issues with a cat. He babysits his grandchild who has been without respiratory complaints. He has had 2 pneumonias prior to this. He has underlying COPD, takes Symbicort. No previous stroke or neurologic issues. Previously, he has had no issue with swallowing solids or liquids. ALLERGIES: PENICILLIN, reaction of rash when he was very little. He does not think he has been on amoxicillin or cephalosporins that he can recall. MEDICATIONS: As noted on his NOV, now on vancomycin, metronidazole, Levaquin and Tamiflu. PAST MEDICAL HISTORY: COPD, hypertension, hyperlipidemia. FAMILY HISTORY: Noncontributory. [facility] [address] [place] [address] CONSULTATION Name: ANVI THEODORE Room #: 364-P [facility] IN M.R.#: [id number] Admission: 10/29/17 Attend Phys: Ary Mckeon MD Discharge: Date of : 47 Report #: [id number] SOCIAL HISTORY: As noted above. Previously worked as an excavator. REVIEW OF SYSTEMS: Negative other than described above with the addition of no headache, pharyngitis symptoms, rash. PHYSICAL EXAMINATION: VITAL SIGNS: Afebrile and hemodynamically stable. GENERAL: He is alert and cooperative and pleasant, in no acute distress. SKIN: Unremarkable. LYMPH: Unremarkable. HEENT: Unremarkable other than dentures. CHEST: Few crackles in the right base posteriorly. No consolidation, no rub. HEART: Tachycardic and regular. ABDOMEN: Soft, nontender, no hepatosplenomegaly or mass. EXTREMITIES: Unremarkable. NEUROLOGIC: Normal. LABORATORY STUDIES: Hemoglobin 11.9, platelet count 582,000, WBC 9, 89% segs, lymphs. Sodium 138, potassium 4.6, creatinine 0.9. Strep pneumo and legionella antigens negative, influenza antigen negative. Urinalysis unremarkable. Chest x-ray, persistent right lower lobe infiltrate. Procalcitonin and lactate normal. IMPRESSION: Right lower lobe pneumonia, residual from previous. I suspect same process. Could still be influenza in addition. Recommend continuing IV antibiotic therapy. We will reculture his sputum. Methicillin-resistant Staphylococcus aureus screen, check viral respiratory panel and continue antibiotic coverage with vancomycin, Levaquin and Tamiflu. <ELECTRONICALLY SIGNED> By: Gomez Ivan MD 11/02/17 1018 0936 1726 Gomez Ivan MD /nt
[~2017-10-29 16:04] MED LIST changes: -LEVAQUIN 500 M500 M1 PO
[2017-10-29 16:11] VITALS: BP 135/68
[2017-10-29 16:42] LABS: HEMATOCRIT 36.5 % (42.0-52.0); HEMOGLOBIN 12.6 gm/dL (14.0-18.0); MCH 32.7 pg (26.0-34.0); MCHC 34.5 g/dL (28.0-37.0); MCV 94.9 fL (80.0-100.0); RBC 3.84 mil/uL (4.50-6.00); RDW 13.9 % (10.5-14.5); WBC 15.4 thou/uL (4.0-11.0)
[2017-10-29 16:50] LABS: CALCIUM 9.5 mg/dL (8.5-10.1); POTASSIUM 4.1 mmol/L (3.5-5.1)
[2017-10-29 17:56] VITALS: BP 135/68
[2017-10-29 18:20] VITALS: BP 134/76
[2017-10-29 19:30] VITALS: BP 113/59
[2017-10-29 23:27] LABS: URINE BILIRUBIN NEGATIVE (Negative); URINE BLOOD TRACE (Negative); URINE CLARITY CLEAR; URINE COLOR YELLOW; URINE GLUCOSE-RANDOM* NEGATIVE (Negative); URINE KETONES NEGATIVE (Negative); URINE LEUKOCYTES-REFLEX NEGATIVE (Negative); URINE NITRITE-REFLEX NEGATIVE (Negative); URINE PROTEIN (DIPSTICK) NEGATIVE (Negative); URINE UROBILINOGEN 0.2 E.U./dl (0.2-1.0)
[2017-10-29 23:37] VITALS: BP 115/63
[2017-10-30 03:31] LABS: ABSOLUTE NEUTROPHILS 8.1 thou/uL (1.4-8.2); BASOPHILS 0.1 % (0.0-2.0); HEMOGLOBIN 11.9 gm/dL (14.0-18.0); LYMPHOCYTES 8.6 % (24.0-44.0); MCH 32.5 pg (26.0-34.0); MCHC 34.1 g/dL (28.0-37.0); MCV 95.3 fL (80.0-100.0); MONOCYTES 1.7 % (1.0-8.0); PLATELET COUNT 582 thou/uL (150-400); POLYS 89.6 % (36.0-66.0); RBC 3.67 mil/uL (4.50-6.00); RDW 13.5 % (10.5-14.5)
[2017-10-30 03:40] LABS: CALCIUM 8.8 mg/dL (8.5-10.1); CREATININE 0.9 mg/dL (0.7-1.3); POTASSIUM 4.6 mmol/L (3.5-5.1)
[2017-10-30 05:15] VITALS: BP 108/63
[2017-10-30] MEDS ORDERED: BUSPIRONE HCL10 MG PO (09:00)
[2017-10-30 20:00] VITALS: BP 138/77
[2017-10-31 04:15] VITALS: BP 136/76
[2017-10-31 05:26] LABS: ABSOLUTE NEUTROPHILS 15.7 thou/uL (1.4-8.2); BASOPHILS 0.1 % (0.0-2.0); EOSINOPHILS 0.1 % (0.0-3.0); HEMATOCRIT 33.6 % (42.0-52.0); LYMPHOCYTES 13.1 % (24.0-44.0); MCH 31.6 pg (26.0-34.0); MCHC 32.9 g/dL (28.0-37.0); MCV 95.9 fL (80.0-100.0); MONOCYTES 8.2 % (1.0-8.0); PLATELET COUNT 627 thou/uL (150-400); POLYS 78.5 % (36.0-66.0); RDW 13.8 % (10.5-14.5)
[2017-10-31 05:36] LABS: CALCIUM 8.5 mg/dL (8.5-10.1); CREATININE 0.8 mg/dL (0.7-1.3); POTASSIUM 4.1 mmol/L (3.5-5.1)
[2017-10-31 08:14] VITALS: BP 123/74
[2017-10-31 11:07] VITALS: BP 129/65
[2017-10-31 15:03] VITALS: BP 126/69
[2017-10-31 19:10] VITALS: BP 133/72
[2017-11-01 03:34] VITALS: BP 115/70
[2017-11-01 03:47] LABS: HEMATOCRIT 33.8 % (42.0-52.0); HEMOGLOBIN 11.5 gm/dL (14.0-18.0); MCH 32.2 pg (26.0-34.0); MCHC 33.9 g/dL (28.0-37.0); MCV 94.9 fL (80.0-100.0); RBC 3.57 mil/uL (4.50-6.00); RDW 13.6 % (10.5-14.5); WBC 13.3 thou/uL (4.0-11.0)
[2017-11-01 04:06] LABS: ALBUMIN 2.4 g/dL (3.4-5.0); CALCIUM 8.5 mg/dL (8.5-10.1); CREATININE 0.7 mg/dL (0.7-1.3); POTASSIUM 4.1 mmol/L (3.5-5.1); TOTAL BILIRUBIN 0.2 mg/dL (<0.1-1.0); TOTAL PROTEIN 6.7 g/dL (6.4-8.2)
[2017-11-01 08:39] VITALS: BP 125/64
[2017-11-01 11:53] VITALS: BP 115/81
[2017-11-01 16:41] VITALS: BP 124/77
[2017-11-01 20:00] VITALS: BP 137/77
[2017-11-02 04:30] VITALS: BP 123/71
[2017-11-02 04:42] LABS: HEMATOCRIT 36.5 % (42.0-52.0); HEMOGLOBIN 12.1 gm/dL (14.0-18.0); MCH 31.8 pg (26.0-34.0); MCHC 33.1 g/dL (28.0-37.0); MCV 96.1 fL (80.0-100.0); RBC 3.8 mil/uL (4.50-6.00); RDW 13.8 % (10.5-14.5); WBC 13.5 thou/uL (4.0-11.0)
[2017-11-02 05:11] LABS: ALBUMIN 2.4 g/dL (3.4-5.0); CALCIUM 8.9 mg/dL (8.5-10.1); CREATININE 0.8 mg/dL (0.7-1.3); POTASSIUM 4.1 mmol/L (3.5-5.1); TOTAL BILIRUBIN 0.2 mg/dL (<0.1-1.0)
[2017-11-02 08:30] VITALS: BP 141/82
[2017-11-02] MEDS ORDERED: LEVAQUIN 500 M500 M1 PO (10:37)
[2017-11-02 10:43] VITALS: BP 141/82
[2017-11-03 17:09] LABS: ADENOVIRUS Negative (Negative); INFLUENZA A Negative (Negative); INFLUENZA B Negative (Negative); METAPNEUMOVIRUS Negative (Negative); PARAINFLUENZA 1 Negative (Negative); PARAINFLUENZA 2 Negative (Negative); PARAINFLUENZA 3 Negative (Negative); RHINOVIRUS Negative (Negative); RSV A Negative (Negative); RSV B Negative (Negative)
== END 2017-11-02 11:09 | disposition home or self-care (01) | DRG 871 ==
LOC: ER 16:04 → EROBS 17:37 → 3W 17:37
PROVIDERS: Emergency Medicine; Hospitalist; Internal Medicine Endocrinology, Diabetes & Metabolism; Internal Medicine Pulmonary Disease
DX: A41.9 Sepsis, unspecified organism (principal); J96.21 Acute and chronic respiratory failure with hypoxia; J18.1 Lobar pneumonia, unspecified organism; J44.0 Chronic obstructive pulmonary disease with (acute) lower respiratory infection; I10 Essential (primary) hypertension; E78.5 Hyperlipidemia, unspecified; Y95 Nosocomial condition; Z87.891 Personal history of nicotine dependence; Z79.899 Other long term (current) drug therapy; Z88.0 Allergy status to penicillin; Z99.81 Dependence on supplemental oxygen
CPT/HCPCS: 10879

== ENCOUNTER → 2017-10-29 | Outpatient (CLI) | payer OTHER | LOC: RAD 08:37 | DX: J98.11 Atelectasis (principal); R91.8 Other nonspecific abnormal finding of lung field; J69.0 Pneumonitis due to inhalation of food and vomit ==

== ENCOUNTER → 2017-11-26 | Outpatient (CLI) | payer OTHER ==
[~2017-11-26] MED LIST changes: +LEVAQUIN 500 M500 M1 PO
== END ==
LOC: RAD 08:01 → SPEECH 08:01 → RAD 10:14
DX: R13.12 Dysphagia, oropharyngeal phase (principal); R06.02 Shortness of breath

== ENCOUNTER → 2019-07-08 | Outpatient (CLI) | payer OTHER | LOC: CAT 12:45 | DX: J43.1 Panlobular emphysema (principal); N13.30 Unspecified hydronephrosis; Z79.899 Other long term (current) drug therapy ==

== ENCOUNTER → 2019-07-13 | Outpatient (CLI) | payer OTHER ==
[2019-07-13 09:29] LABS: CREATININE 0.9 mg/dL (0.7-1.3)
== END ==
LOC: CAT 08:39
PROVIDERS: Internal Medicine
DX: K57.30 Diverticulosis of large intestine without perforation or abscess without bleeding (principal); E27.8 Other specified disorders of adrenal gland; I25.10 Atherosclerotic heart disease of native coronary artery without angina pectoris; N40.0 Benign prostatic hyperplasia without lower urinary tract symptoms; K56.41 Fecal impaction; M25.78 Osteophyte, vertebrae; J43.9 Emphysema, unspecified; M41.86 Other forms of scoliosis, lumbar region; Z88.0 Allergy status to penicillin

== ENCOUNTER → 2019-07-20 | Outpatient (CLI) | payer OTHER ==
[~2019-07-20] VITALS: Ht 162.6 cm; Wt 63.5 kg
[2019-07-20] VITALS (7 sets, daily range): BP systolic 107–126; BP diastolic 63–70
[2019-07-20 10:38] LABS: APTT 33.5 Seconds (24.5-32.8); INR 1.1; PROTIME 11.1 Seconds (9.3-11.4)
--- NOTE | 2019-07-20 12:28 | NUR ---
PROCEDURE SITE C/D/I. DENIES ANY PAIN OR DISCOMFORT. BANDAID OVER SITE. PT SITTING UP EATING. WILL CONTINUE TO MONITOR.
== END | disposition home or self-care (01) ==
LOC: SPEC 08:20 → ULTRA 09:35 → SPEC 15:06
PROVIDERS: Radiology Diagnostic Radiology
DX: E27.9 Disorder of adrenal gland, unspecified (principal); I10 Essential (primary) hypertension; J44.9 Chronic obstructive pulmonary disease, unspecified; K21.9 Gastro-esophageal reflux disease without esophagitis; E78.5 Hyperlipidemia, unspecified; Z98.890 Other specified postprocedural states; Z79.899 Other long term (current) drug therapy; Z87.19 Personal history of other diseases of the digestive system; Z87.891 Personal history of nicotine dependence; Z88.0 Allergy status to penicillin; Z79.01 Long term (current) use of anticoagulants

== ENCOUNTER → 2019-07-28 | Outpatient (CLI) | payer OTHER ==
--- NOTE | 2019-07-27 14:06 | PATH ---
[facility] [address] [place] [address] PATHOLOGY RPT PROCEDURE Name: NAVI ISSA Room #: PRE [facility] M.R.#: [id number] Admission: Date of : 47 Discharge: Report #: [id number] Path Case #: [id number] [facility] Accession Number: [id number] . 01 Material submitted: . adrenal gland - LEFT ADRENAL. Modifiers: left . 01 Clinical history: . Left adrenal mass . 01 Frozen section diagnosis: . . /QLM . 02 Diagnosis: "Left adrenal", needle biopsy: - DIFFUSE LARGE B-CELL LYMPHOMA, NON-GERMINAL CENTER CELL SUBTYPE. (SEE COMMENT) . (CLW:mml; 07/26/2019) . . . Special studies report received from [facility], [address] [place] [address], [address], [place], [address], on case [id number], labeled with their number [id number], dated 07/22/2019. . Flow Cytometry: Hematologic Neoplasia Assessment . 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 Specimen Tissue, Adrenal . Viability 73% (7AAD exclusion) . Interpretation Tissue, Adrenal: - Monotypic (clonal) B-cell population (50% of sample) with increased cell size (see comments) . Comments The flow cytometry results are consistent with a B-cell lymphoma with [facility] [address] [place] [address] PATHOLOGY RPT PROCEDURE Name: NAVI ISSA Room #: PRE [facility]..#: [id number] Admission: Date of : 47 Discharge: Report #: [id number] Path Case #: [id number] increased cell size. Correlation with all available clinical, laboratory, and morphologic data is necessary for further classification of this process. Aggressive B-cell lymphoma FISH panel is available if needed. . Populations Analyzed Abnormal B-cells: 50% Scatter properties compatible with intermediate to large cell size, cells characterized as: CD45+, CD19+, CD20+, CD5-, CD10-, CD23-, FMC7+, CD30-, CD38-, CD43-, HLA DR+, sIg kappa+ Remaining 9% B-cells: 0.0%, polytypic/polyclonal sIg light chain Lymphocytes: pattern T-cells: no significant abnormalities of the markers tested CD4:CD8: 0.4 NK cells: 0.8% Granulocytes: 1% Present CD45 Negative 40% No significant reactivity with the markers tested Events/Debris: (may represent non-hematolymphoid cells, degenerated cells, debris, unlysed red blood cells, etc.) . Morphologic Evaluation A slide was reviewed for quality system manager purposes only. . Specimen Description Cell Yield: 0.81x10 and 6 Viability is 73%. Flow cytometric data derived from samples with <80% viability needs to be interpreted within the context of all clinical, laboratory, and morphologic data available. . Reagent(s) Used CD2, CD3, CD4, CD5, CD7, CD8, CD10, CD11b, CD19, CD20, CD23, CD30, CD38, CD43, CD45, CD56, CD57, FMC-7, HLA-DR, kappa, lambda . at [facility]. Kevin Dowell MD Pathologist . Intended Use Flow cytometry is optimally used to immunophenotypically characterize abnormal populations when they are detected. Negative flow cytometry results do not exclude lymphoma or neoplasia. Possible false negative flow cytometry results may occur in, but are not limited to, the following: neoplastic cells in Hodgkin lymphoma are not typically adequately represented by routine clinical flow cytometry; neoplastic cells may be lost or inadequately represented due to degeneration, sample processing, sampling artifact, or patchy involvement; plasma cells are typically [address] [address] PATHOLOGY RPT PROCEDURE Name: NAVI ISSA Room #: PRE [facility].#: [id number] Admission: Date of : 47 Discharge: Report #: [id number] Path Case #: [id number] underrepresented by flow cytometry; immature cells/blasts may be underrepresented due to hemodilution; myeloproliferative disorders and low grade myelodysplasia may not have immunophenotypic abnormalities or increased blasts. Correlation with all available clinical, laboratory, and morphologic data is always necessary to assess for the possibility of false negative flow cytometry results and to establish a diagnosis. Each marker in this analysis was used to assess for potential antigenic abnormalities or to evaluate detected abnormalities. . Disclaimer(s) This test was performed at [facility]. at [address], [place], [address] - Sales Marketing Manager: Artem Duong MD. [facility] is a business unit of [facility]., a wholly-owned subsidiary of [employer]. . Any image or images that accompany this report are technical sales representative images only and should not be used to render a diagnosis. . This test was developed and its performance characteristics determined by [facility]. It has not been cleared or approved by the Food and Drug Administration (FDA). The FDA has determined that such clearance or approval is not necessary. . For inquiries, the physician may contact Lab: [phone] . A complete copy of the report is on file. . Professional services performed by [facility]. at [address], [place] [address]. Technical services performed by [facility]. at [address], [place] [address]. . (CLW:edgar 07/22/2019) . . [place] 07/26/2019 1051 Local . 02 Comment: Sections show fragments of tissue with an atypical cellular infiltrate. Areas of geographic hemorrhagic necrosis are noted. The atypical cells are large with irregular nuclear contours and moderate cytoplasm. Scattered mitotic figures are present. Apoptotic bodies/single cell necrosis is readily identified. . To further characterize the atypical cellular infiltrate, confirm the flow [address] [address] PATHOLOGY RPT PROCEDURE Name: NAVI ISSA Room #: PRE [facility]#: [id number] Admission: Date of : 47 Discharge: Report #: [id number] Path Case #: [id number] cytometry findings and to identify cells in a tissue architectural context, properly-controlled immunohistochemical stains are performed: . Block A1: CD20: Diffusely reactive; PAX-5: Diffusely reactive; CD3: Highlights rare admixed T-cells; CD5: Stains rare admixed T-cells, no B-cell co-expression; CD10: Non-reactive; BCL-6: Weakly reactive; BCL-2: Strongly reactive; MUM1: Strongly reactive in a majority of cells; CD23: Non-reactive; Cyclin D1: Lacks diffuse nuclear staining; CD30: Non-reactive; Ki-67: Proliferative index of 90-95%; CD45: Reactive; CK7: Non-reactive; CK20: Non-reactive; Synaptophysin: Non-reactive; Chromogranin: Non-reactive; TTF-1: Non-reactive. . Flow cytometric immunophenotypic analysis was performed at [facility]. The diagnosis is "monotypic" (clonal) B-cell population (50% of sample) with increased cell size." There are 50% abnormal B-cells that are intermediate to large in cell size and characterized as CD45 positive, CD19 positive, CD20 positive, CD5 negative, CD10 negative, CD23 negative, FMC-7 positive, CD30 negative, CD38 negative, CD43 negative, HLA-DR positive, and surface kappa positive. . There are 9% remaining lymphocytes that are T-cells with a CD4/CD8 ratio of 0.4 and no aberrant T-cell antigen expression. Please see separate, and attached, flow cytometry report from [facility] ([id number]). . Overall, the diagnosis is diffuse large B-cell lymphoma. It is non-germinal center cell subtype. An aggressive B-cell lymphoma FISH panel is pending and will be reported as an addendum. The H and E stained slides are co-reviewed with Dr. Rosanne Salazar. The case was discussed with Dr. Wallace on 07-27-19 at approximately 1:50 PM. . (CLW:tram; 07/26/2019) . 02 Electronically signed: . Jeimy Leonard MD, Pathologist NPI- [id number] . [address] [place] [address] PATHOLOGY RPT PROCEDURE Name: NAVI ISSA Room #: PRE [facility]#: [id number] Admission: Date of : 47 Discharge: Report #: [id number] Path Case #: [id number] Gross description: . The specimen is received in formalin, labeled "Navi Issa left adrenal BX ", is a needle core and its fragment measuring 2.3 cm and 0.7 cm in length and up to 0.1 cm in diameter. The specimen is entirely submitted in A1. Also received is an RPMI tube labeled with patient name and "left adrenal BX", the specimen is forwarded for flow cytometry studies. ([facility]; 07/20/2019) [facility] 07/20/2019 1706 Local . 02 Pathologist provided ICD-10: C85.19 . 02 CPT . 070803, R98116, J23727, 131693 Specimen Comment: A courtesy copy of this report has been sent to [phone] Specimen Comment: [phone], Specimen Comment: Report sent to ,DR WALLACE / DR JACOBSEN Performed at: 01 [facility] [address] [id number] MD Kris Morel MD Phone: [phone] Performed at: 02 [facility] [address] [id number] MD Ron Rebolledo MD Phone: [phone]
--- NOTE | 2019-07-28 13:42 | 2DMMODE ---
[facility] [place] [employer] [place] [address] 2 D/M-MODE ECHOCARDIOGRAM Name: NAVI THEODORE Room #: REG [facility]#: [id number] Admission: 07/28/19 Attend Phys: Lamonte Hernández Discharge: Date of : 47 Report #: [id number] THIS REPORT FOR: //name// APPROVED REPORT Study performed: 07/28/2019 10:45:29 EXAM: Comprehensive 2D, Doppler, and color-flow Echocardiogram Patient Location: Out-Patient Status: routine BSA: 1.68 HR: 99 bpm BP: 112/56 mmHg Rhythm: Irregular Other Information Study Quality: Adequate Technically limited study due to patient frequent movement and lung artifact. Indications Shortness of breath. 2D Dimensions RVDd: 29.23 mm IVSd: 11.43 (7-11mm) LVOT Diam: 20.03 (18-24mm) LVDd: 42.56 mm PWd: 9.60 (7-11mm) LVDs: 26.81 (25-40mm) Aortic Root: 37.38 mm Volumes Left Atrial Volume (Systole) Single Plane 4CH: 15.37 mL Single Plane 2CH: 35.79 mL LA ESV Index: 19.00 mL/m2 Aortic Valve AoV Peak Niko.: 2.36 m/s AO Peak Gr.: 22.36 mmHg LVOT Max P.19 mmHg AO Mean Gr.: 12.81 mmHg LVOT Mean P.03 mmHg AO V2 Mean: 1.66 m/s LVOT Max V: 1.02 m/s AO V2 VTI: 37.96 cm LVOT Mean V: 0.67 m/s BIIS (VTI): 1.41 cm2 LVOT V1 VTI: 17.04 cm BISI Vmax: 1.36 cm2 [facility] [place] [address] 2 D/M-MODE ECHOCARDIOGRAM Name: NAVI THEODORE [facility] [id number] Admission: 07/28/19 Attend Phys: Lamonte Hernández Discharge: Date of : 47 Report #: [id number] SV (LVOT): 53.65 mL Mitral Valve E/A Ratio: 0.8 MV Decel. Time: 110.85 ms MV E Max Niko.: 0.90 m/s MV A Niko.: 1.17 m/s MV PHT: 32.15 ms IVRT: 83.04 ms Pulmonary Valve PV Peak Niko.: 1.09 m/s PV Peak Gr.: 4.80 mmHg Tricuspid Valve TR Peak Niko.: 2.83 m/s RAP Estimate: 5.00 mmHg TR Peak Gr.: 32.00 mmHg PA Pressure: 37.00 mmHg Left Ventricle The left ventricle is normal size. There is normal left ventricular wall thickness. The left ventricular systolic function is normal. LVEF is 60%. Mild diastolic dysfunction is present (impaired relaxation pattern). Right Ventricle The right ventricle is normal size. The right ventricular systolic function is normal. Atria The left atrium size is normal. The right atrium size is normal. Aortic Valve Aortic valve leaflets are mildly thickened. Aortic valve is calcified. No aortic regurgitation is present. There is mild valvular aortic stenosis. Calculated aortic valve area is 1.4 cm2 with maximum pressure gradient of 22 mmHg and mean pressure gradient of 12 mmHg. Mitral Valve There is mild mitral annular calcification. Mild mitral regurgitation. No evidence of mitral valve stenosis. Tricuspid Valve The tricuspid valve is normal in structure. Mild tricuspid regurgitation. Estimated PAP is 37mmHg. [address] [address] 2 D/M-MODE ECHOCARDIOGRAM Name: NAVI THEODORE Room #: [facility] [id number] Admission: 07/28/19 Attend Phys: Lamonte Hernández Discharge: Date of : 47 Report #: [id number] Pulmonic Valve Pulmonic valve is not well visualized. Great Vessels Aortic root is at the upper limits of normal. Ascending aorta is not well visualized. IVC is normal in size and collapses >50% with inspiration. Pericardium There is no pericardial effusion. <Conclusion> The left ventricle is normal size. LVEF is 60%. Aortic valve leaflets are mildly thickened. Aortic valve is calcified. There is mild valvular aortic stenosis. Calculated aortic valve area is 1.4 cm2 with maximum pressure gradient of 22 mmHg and mean pressure gradient of 12 mmHg. There is mild mitral annular calcification. Mild mitral regurgitation. The tricuspid valve is normal in structure. Mild tricuspid regurgitation. Estimated PAP is 37mmHg. Pulmonic valve is not well visualized. There is no pericardial effusion. <ELECTRONICALLY SIGNED> By: Lamonte Oliva MD 07/28/19 1342 41 134 Lamonte Oliva MD /INF
== END ==
LOC: NUC 07:21
DX: I08.3 Combined rheumatic disorders of mitral, aortic and tricuspid valves (principal); Z88.0 Allergy status to penicillin; I10 Essential (primary) hypertension; E78.5 Hyperlipidemia, unspecified; J44.9 Chronic obstructive pulmonary disease, unspecified; Z79.899 Other long term (current) drug therapy; Z87.891 Personal history of nicotine dependence

== ENCOUNTER → 2020-10-17 | Outpatient (CLI) | payer OTHER | LOC: RAD 13:49 | PROVIDERS: ATTEND Pediatrics | DX: R06.02 Shortness of breath (principal) ==

== ENCOUNTER 2020-10-19 16:32 | Emergency (ER) | payer OTHER ==
[~2020-10-19] VITALS: Ht 170.2 cm; Wt 77.1 kg
--- NOTE | 2020-10-22 07:23 | EKG ---
[address] [address] ELECTROCARDIOGRAM REPORT Name: NAVI THEODORE [facility] [id number] Admission: 10/19/20 Attend Phys: Discharge: 10/19/20 Date of : 47 Report #: [id number] [facility] ED Test Date: 2020-10-19 Test Time: 16:50:18 Pat Name: NAVI THEODORE Department: Room: Gender: M Institutional Nutrition Consultant: LATHA : 1945 Requested By: Juanito Coulter Order Number: [id number] MD: Gera Boyd Measurements Intervals [place] Rate: 64 P: 92 HI: 212 QRS: -86 QRSD: 145 T: 52 QT: 415 QTc: 428 Interpretive Statements Sinus rhythm Atrial premature complexes Right bundle branch block Inferior infarct, old Lateral infarct, possibly recent Probable anteroseptal infarct, old Baseline wander in lead(s) II,V3,V4 Compared to ECG 10/29/2017 16:35:40 Atrial premature complex(es) now present Sinus tachycardia no longer present Ventricular premature complex(es) no longer present Electronically Signed On 10-22-2020 7:22:48 COAGULATING OPERATOR by Gera Boyd [email or web address] <ELECTRONICALLY SIGNED> By: Gera Boyd MD, FAC 10/22/20 0722 1650 1650 Gera Boyd MD, [facility] /EPI
== END 2020-10-19 17:16 ==
LOC: ER 16:32
DX: I46.9 Cardiac arrest, cause unspecified (principal); I25.2 Old myocardial infarction; I10 Essential (primary) hypertension; E78.5 Hyperlipidemia, unspecified; J44.9 Chronic obstructive pulmonary disease, unspecified; Z90.89 Acquired absence of other organs; Z79.899 Other long term (current) drug therapy; Z87.891 Personal history of nicotine dependence; Z88.0 Allergy status to penicillin